=== PATIENT | male | born 1960 | race Caucasian/White ===

== ENCOUNTER 2018-09-11 12:45 | Emergency (ER) | payer MEDICAID, OTHER ==
[2018-09-11 12:50] VITALS: BMI 27.1
[2018-09-11 12:53] VITALS: RESP 18; TEMP 98.3; O2SAT 98
--- NOTE | 2018-09-11 13:03 | ED PDOC ---
Arrival/HPI - General Chief Complaint: Lower Extremity Problem/Injury Time Seen by Provider: 09/11/18 12:46 Historian: Patient - History of Present Illness Narrative History of Present Illness (Text): 09/11/18 13:06 A 58 year old male, with no significant past medical history, presents to the emergency department complaining of left knee pain for 3 months. Patient reports 4 months ago he had twisted his knee while working, however had no issues at the time. Now for the past 3 months, when working patient has difficulty bending knee, however when resting the knee has full range of motion. He mentions he did not go to have left knee evaluated by doctor. Patient denies any injuries/trauma, or any other complaints at this time. No PMD Past Medical History - Provider Review Nursing Documentation Reviewed: Yes - Infectious Disease Hx of Infectious Diseases: None - Tetanus Immunization Tetanus Immunization: Unknown - Past Medical History Past Medical History: No Previous - Cardiac Hx Cardiac Disorders: No - Pulmonary Hx Respiratory Disorders: No - Neurological Hx Neurological Disorder: No - HEENT Hx HEENT Disorder: No - Renal Hx Renal Disorder: No Hx Dialysis: No - Hematological/Oncological Hx Blood Disorders: No - Musculoskeletal/Rheumatological Hx Back Pain: Yes - Genitourinary/Gynecological Hx Genitourinary Disorders: No - Psychiatric Hx Substance Use: No - Past Surgical History Past Surgical History: No Previous - Anesthesia Hx Anesthesia: No Hx Anesthesia Reactions: No Hx Malignant Hyperthermia: No - Suicidal Assessment Feels Threatened In Home Enviroment: No Family/Social History - Physician Review Nursing Documentation Reviewed: Yes Family/Social History: No Known Family HX Smoking Status: Never Smoked Hx Alcohol Use: No Hx Substance Use: No Hx Substance Use Treatment: No Allergies/Home Meds Allergies/Adverse Reactions: Allergies No Known Allergies Allergy (Verified 04/26/15 13:57) Review of Systems - Physician Review All systems were reviewed & negative as marked: Yes - Review of Systems Constitutional: absent: Fevers Respiratory: absent: SOB Cardiovascular: absent: Chest Pain Physical Exam - Physical Exam Narrative Physical Exam (Text): Constitutional: No acute distress. Head: Normocephalic. Atraumatic. Eyes: PERRL. ENT: Moist mucous membranes. Neck: Supple. Cardiovascular: Regular rate. Chest: No tenderness. Respiratory: Clear to auscultation bilaterally. GI: Soft. Nontender. Nondistended. Back: No CVA tenderness. Musculoskeletal: Swelling and effusion to the left knee, no focal bony tenderness, negative anterior/posterior drawer test, full ROM to left knee. Skin: No rash. Neurologic: Alert, no focal deficit. Vital Signs Reviewed: Yes Vital Signs Temp Pulse Resp BP Pulse Ox 09/11/18 12:45 98.3 F 106 H 18 152/98 H 98 Temperature: Afebrile Blood Pressure: Normal Pulse: Regular Respiratory Rate: Normal Appearance: Positive for: Well-Appearing, Non-Toxic, Comfortable Pain Distress: None Mental Status: Positive for: Alert and Oriented X 3 Medical Decision Making ED Course and Treatment: 09/11/18 13:07 Impression: 58 year old male with left knee pain. Plan: -- Left Knee X-Ray -- Reassess and disposition Progress Notes: 09/11/2018 14:50 Left Knee X-ray FINDINGS: Rotated lateral view. BONES: Degenerative changes. Well corticated ossific fragment at the level the intercondylar notch may reflect remote injury. Question periosteal reaction along the posterior proximal tibia of uncertain significance. JOINTS: No dislocation. Joint space narrowing most prominently involving the lateral and patellofemoral compartments. JOINT EFFUSION: Probable small suprapatellar joint effusion. OTHER FINDINGS: None. IMPRESSION: Soft tissue swelling. No acute displaced fracture. Probable small suprapatellar joint effusion. Extensive degenerative changes and joint space narrowing as above. Suspect periosteal reaction along the posterior proximal tibia of uncertain significance. Follow-up cross-sectional imaging may be considered if indicated. Dictator: Chantel Carvajal MD Copy of XR given, f/u Ortho. Return to ED for any fever or worsening pain. - Scribe Statement The provider has reviewed the documentation as recorded by the Noah Mccullough Provider Scribe Attestation: All medical record entries made by the Scrib[employer] were at my direction and personally dictated by me. I have reviewed the chart and agree that the record accurately reflects my personal performance of the history, physical exam, medical decision making, and the department course for this patient. I have also personally directed, reviewed, and agree with the discharge instructions and disposition. Disposition/Present on Arrival - Present on Arrival Any Indicators Present on Arrival: No History of DVT/PE: No History of Uncontrolled Diabetes: No Urinary Catheter: No History of Decub. Ulcer: No History Surgical Site Infection Following: None - Disposition Have Diagnosis and Disposition been Completed?: Yes Diagnosis: Knee effusion Disposition: HOME/ ROUTINE Disposition Time: 14:59 Patient Plan: Discharge Condition: STABLE Discharge Instructions (ExitCare): Knee Pain (DC) Additional Instructions: PROCEDURE: Left knee Radiographs. HISTORY: Knee pain, swelling COMPARISON: None available. FINDINGS: Rotated lateral view. BONES: Degenerative changes. Well corticated ossific fragment at the level the intercondylar notch may reflect remote injury. Question periosteal reaction along the posterior proximal tibia of uncertain significance. JOINTS: No dislocation. Joint space narrowing most prominently involving the lateral and patellofemoral compartments. JOINT EFFUSION: Probable small suprapatellar joint effusion. OTHER FINDINGS: None. IMPRESSION: Soft tissue swelling. No acute displaced fracture. Probable small suprapatellar joint effusion. Extensive degenerative changes and joint space narrowing as above. Suspect periosteal reaction along the posterior proximal tibia of uncertain significance. Follow-up cross-sectional imaging may be considered if indicated. Ref[place]: [facility] [place] - Follow up with primary Jaxson Macario MD [Staff Provider] - Follow up with primary Forms: [employer] ([employer])
--- NOTE | 2018-09-11 14:54 | RAD ---
PROCEDURE: Left knee Radiographs. HISTORY: Knee pain, swelling COMPARISON: None available. FINDINGS: Rotated lateral view. BONES: Degenerative changes. Well corticated ossific fragment at the level the intercondylar notch may reflect remote injury. Question periosteal reaction along the posterior proximal tibia of uncertain significance. JOINTS: No dislocation. Joint space narrowing most prominently involving the lateral and patellofemoral compartments. JOINT EFFUSION: Probable small suprapatellar joint effusion. OTHER FINDINGS: None. IMPRESSION: Soft tissue swelling. No acute displaced fracture. Probable small suprapatellar joint effusion. Extensive degenerative changes and joint space narrowing as above. Suspect periosteal reaction along the posterior proximal tibia of uncertain significance. Follow-up cross-sectional imaging may be considered if indicated.
[2018-09-11 15:14] VITALS: BP 137/84; PULSE 86
== END 2018-09-11 15:12 | disposition home or self-care (01) ==
LOC: ED 12:45
DX: M25.462 Effusion, left knee (principal)